=== PATIENT | male | born 1975 | race Two or more races ===

== ENCOUNTER → 2020-09-25 | Emergency (ER) | payer OTHER ==
[~2020-09-25] VITALS: Ht 180.3 cm; Wt 97.5 kg
[~2020-09-25] MED LIST: ECOTRIN81 MG
== END | disposition home or self-care (01) ==
LOC: ER 09:49 → CPU-OBS 10:09
DX: R07.89 Other chest pain (principal); E03.8 Other specified hypothyroidism; Z03.818 Encounter for observation for suspected exposure to other biological agents ruled out
CPT/HCPCS: G0378; G0379; 93005

== ENCOUNTER 2020-10-22 07:47 | Outpatient (CLI) | payer OTHER | END 2020-10-22 07:55 | disposition home or self-care (01) | LOC: NUCLEAR 07:47 | PROVIDERS: ATTEND Internal Medicine Cardiovascular Disease | DX: I10 Essential (primary) hypertension (principal); J44.9 Chronic obstructive pulmonary disease, unspecified ==

== ENCOUNTER 2020-10-22 09:50 | Outpatient (CLI) | payer OTHER | END 2020-10-22 10:10 | disposition HB | LOC: RAD 09:50 → TOM 11:15 | DX: R91.1 Solitary pulmonary nodule (principal); J98.4 Other disorders of lung; I10 Essential (primary) hypertension; J44.9 Chronic obstructive pulmonary disease, unspecified ==

== ENCOUNTER 2022-03-17 07:19 | Outpatient (CLI) | payer OTHER | END 2022-03-17 13:39 | disposition home or self-care (01) | LOC: NUCLEAR 07:19 | PROVIDERS: ATTEND Internal Medicine Cardiovascular Disease | DX: M19.90 Unspecified osteoarthritis, unspecified site (principal); M10.9 Gout, unspecified; L93.2 Other local lupus erythematosus | CPT/HCPCS: 78315; A9503 ==

== ENCOUNTER 2022-07-23 07:45 | Outpatient (CLI) | payer OTHER | END 2022-07-23 07:55 | disposition home or self-care (01) | LOC: RAD 07:45 | PROVIDERS: ATTEND Internal Medicine Cardiovascular Disease | DX: E03.9 Hypothyroidism, unspecified (principal); R13.10 Dysphagia, unspecified ==

== ENCOUNTER 2022-09-20 07:27 | Outpatient (CLI) | payer OTHER | END 2022-09-20 07:37 | disposition home or self-care (01) | LOC: SONOGRAMA 07:27 | PROVIDERS: ATTEND Internal Medicine Cardiovascular Disease | DX: N40.0 Benign prostatic hyperplasia without lower urinary tract symptoms (principal) ==

== ENCOUNTER → 2023-03-28 | Emergency (ER) | payer OTHER ==
[~2023-03-28] VITALS: Ht 180.3 cm; Wt 93.0 kg
== END | disposition home or self-care (01) ==
LOC: ER 15:14
DX: I10 Essential (primary) hypertension (principal)

== ENCOUNTER 2023-12-09 09:12 | Outpatient (CLI) | payer OTHER | END 2023-12-09 09:14 | disposition home or self-care (01) | LOC: RAD 09:12 | DX: N20.0 Calculus of kidney (principal) ==